=== PATIENT | female | born 1995 | race Caucasian/White ===

== ENCOUNTER 2022-07-09 19:36 | Emergency (ER) | payer MEDICAID ==
[~2022-07-09] VITALS: Ht 170.2 cm; Wt 85.2 kg
[2022-07-09 20:05] VITALS: BP 130/65
[2022-07-09] MEDS ORDERED: AMOX1TAB16 MT (21:53)
== END 2022-07-09 22:09 | disposition home or self-care (01) ==
LOC: ER 19:36
DX: M79.605 Pain in left leg (principal); Z53.21 Procedure and treatment not carried out due to patient leaving prior to being seen by health care provider
CPT/HCPCS: 99281; Z7610